=== PATIENT | male | born 1950 | race Caucasian/White ===

== ENCOUNTER → 2018-05-26 | Day surgery (SDC) | payer OTHER ==
[2018-05-25 12:23] LABS: Absolute Lymphocytes (CBC) 2.5 K/uL (0.7-4.9); Absolute Monocytes 0.6 K/uL (0.1-1.3); Absolute Neutrophil 7.1 K/uL (1.8-8.0); Basophils % 0.5 % (0-1.3); Eosinophils % 1.9 % (0-4.4); Hematocrit 43.1 % (39.6-49.0); Lymphocytes % 24.3 % (15.3-44.8); MPV 9.1 fL (7.6-11.3); Monocytes % 5.4 % (3.3-12.3); RBC Red Blood Cell Count 4.81 M/uL (4.33-5.43)
--- NOTE | 2018-05-25 12:33 | RAD REPORT ---
EXAM DESCRIPTION: RAD - Chest Pa And Lat (2 Views) - 05/25/2018 12:16 pm CLINICAL HISTORY: preop Chest pain. COMPARISON: CHEST PA AND LAT 2 VIEW dated 08/07/2015 FINDINGS: Diffuse COPD is present. The heart is mildly to moderately. No displaced fractures. IMPRESSION: COPD.
[2018-05-25 12:39] LABS: Protime INR 1.01
[2018-05-25 12:43] LABS: BUN Blood Urea Nitrogen 20 mg/dL (7-18); Bicarbonate 30 mmol/L (21-32); Glucose Level 213 mg/dL (74-106); Potassium 3.9 mmol/L (3.5-5.1); Sodium Level 140 mmol/L (136-145)
--- NOTE | 2018-05-25 15:34 | EKG ---
Test Date: 2018-05-25 Test Time: 12:04:16 School Bus Driver/Teacher Assistant: UYEN MEASUREMENT RESULTS: Intervals: Rate: 96 AZ: 180 QRSD: 106 QT: 380 QTc: 480 [place]: P: 81 AZ: 180 QRS: 25 T: 71 INTERPRETIVE STATEMENTS: Normal sinus rhythm Incomplete right bundle branch block Prolonged QT Abnormal ECG No previous ECG available for comparison Electronically Signed On 05-25-18 15:33:04 DIESEL LOCOMOTIVE CRANE OPERATOR by Frank Bhatia
[~2018-05-26] MED LIST: ATROPINE SULF 1 MG/10 ML SYR IV ONE; FENTANYL CITR 100 MCG/2 ML ONE; HEPA 1000U/500MLS 1,000 UNIT/500 ML BAG IV ONE; MIDAZOLAM HCL 2 MG/2 ML INJ ONE; NA CHLORIDE 0.9% 500 ML ONE
--- NOTE | 2018-05-26 23:11 | OP ---
Surgeon: Merritt Brito MD Procedures: Left heart catheterization, coronary left ventricular angiography. Findings: The patient has normal coronary arteries, normal left ventricular ejection fraction and wa ll motion, normal pressures. The diagnosis is he had a false-positive Cardiolite stress test. Procedure In Detail: The patient had an abnormal Cardiolite stress test. Symptoms suggestive of ang andreas. He was brought to the cardiac solar lab technician in a fasting state, sedated with Versed and fentanyl, an d prepared and draped in usual sterile fashion. Right radial artery was used. Entered the artery us ing a 21-gauge needle after local anesthesia with 1% lidocaine. The artery was cannulated with a 0.0 21 inch diameter guidewire and then a sheath was placed in the radial artery using the modified Seldi nger technique, a 6-Ethiopian Terumo radial sheath. The sheath was then flushed. Radial cocktail was g iven consisting of heparin, nicardipine, and nitroglycerin. We used a TIG catheter, guided it into t he ascending aorta using fluoroscopy and a Terumo Glidewire. We angiogram'd the left coronary, right coronary, left ventricle; all using the TIG catheter. Catheter was removed over a wire to straighte n it. The sheath was then flushed and removed, and the arteriotomy was closed with a TR band. No co mplications from the procedure. Estimated Blood Loss: 5 cc. Tile Picker: Anne-Marie Klein. ZEB/DEBRA Voice ID: [id number] Report ID: [id number]
--- NOTE | 2018-05-31 20:25 | HP ---
Date of Admission: 05/26/2018 Chief Complaint: Abnormal Cardiolite stress test. Reason For Hospitalization: Reason for the admission to the hospital is an outpatient procedure of c ardiac cath because of an abnormal stress test. History Of Present Illness: Mr. Johnson has a previous history of hypertension, never had myocardial inf arction or stroke before, started having chest pain, and we did a cardiac stress test with nuclear me dheeraj and found that he had evidence of ischemia. He was at first very reluctant to do anything abo ut it. We did that in December and that within a few times and at our last meeting in February 2018 he said he was planning on doing the cardiac cath. He did not actually schedule it until 05/26/2018. Allergies: THE PATIENT HAS NO ALLERGIES. Physical Examination: General: He is alert, oriented, pleasant, not in distress. Vital Signs: His blood pressure was 130/80. Neck: No carotid bruit. Lungs: Clear. Cardiac Exam: Normal. Extremities: Palpable normal distal pulses. Abdomen: Soft. Neurological Exam: Within normal limits. Impression: The patient needs a cardiac cath because of the possibility suggestive of a stress test that he has blocked arteries. He may well need a stent. He seemed to understand the procedure, its potential benefits, indications, and risks. He agrees to proceed. We plan to do a cardiac cath via the right radial artery and if he has a stenosis we will be ready to pu t in a stent. MORRIS Voice ID: [id number]
== END ==
LOC: CCL 07:50
PROVIDERS: ATTEND Internal Medicine
DX: I20.8 Other forms of angina pectoris (principal); R94.39 Abnormal result of other cardiovascular function study; J44.9 Chronic obstructive pulmonary disease, unspecified
CPT/HCPCS: 36415; 71046; 80048; 85025; 85610; 85730; 93005; 93458; C1893; J2250 ×2; J3010; J0583

== ENCOUNTER 2020-06-16 07:38 | Day surgery (SDC) | payer OTHER ==
--- OUTSIDE RECORDS SUMMARY | 2020-06-16 07:41 | XMS REPORT | Continuity of Care Document ---
:1950 Author Organization [facility] t Address [facility] [place] [address] Care Team Providers Name Role Phone Unavailable Unavailable Unavailable Problems Condition Condition Condition Status Onset Resolution Last Treating Co mments Source Name Details Category Date Date Treatment Clinician Date Elevated Elevated Diagnosis Active [facility] Lower Lower Diagnosis Active [facility] urinary urinary [facility] - tract tract [facility] symptoms symptoms l (LUTS) [facility]LUTS) [facility] Allergies, Adverse Reactions, Alerts This patient has no known allergies or adverse reactions. Medications Ordered Filled Start Stop Current Ordering Indication Dosage Frequency Signature Comments Components Source Medication Medication Date Date Medication? Clinician (SIG) Name Name Tamsulosin Tamsulosin 2020- No Kym [address] [facility] HCl HCl 01-20 Krista Varmakes - 00:00: 00:00 [facility] 00 :00 l [facility] Procedures This patient has no known procedures. Encounters Start End Encounter Admission Attending Care Care Encounter Source Date/Time Date/Time Type Type Clinicians Facility Department ID 2020-01-21 2020-01-21 Outpatient Brazamrita Alcalat [id number] [facility] 14:15:00 14:15:00 t Specialty/U Avani kes - Specialty rology [facility] /Urology Clinic l [facility] Results This patient has no known results.
[2020-06-16] MEDS ORDERED: Ringers Lactate 1,000 ML IV ONE (08:07)
[2020-06-16] MEDS ORDERED: EPINEPHRINE/PF 1 MG/ML AMP ONE (08:11)
[2020-06-16] MEDS ORDERED: propofoL 200 MG/20 ML VIAL IV ONE (08:35)
[2020-06-16] MEDS ORDERED: LIDOCAINE 1% MPF 5 ML VIAL ONE (08:35)
[2020-06-16] MEDS ORDERED: EPHEDRINE SULF 50 MG/ML VIAL ONE (08:35)
--- NOTE | 2020-06-16 10:28 | OP ---
Surgeon: Emmanuel Mendez MD Procedure Performed: Colonoscopy. Indication For Procedure: Screening, also positive Cologuard. Plan For Anesthesia: Monitored anesthesia care. Complexity: Average. Technique: After obtaining informed consent from the patient and explaining risks and complications, which include but are not limited to bleeding, infection, perforation, and anesthesia complication p atient was placed in the left lateral position and sedation was given. From then on the scope was ad vanced. A digital rectal exam was performed and then scope was advanced to the rectum and carefully guided up till the cecum. The cecum was identified by the ileocecal valve and appendiceal orifice. Subsequently, scope gradually withdrawn while carefully examining the mucosa. Scope withdrawal time was 15 minutes. Quality of prep was limited due to he is having some stools. Findings: In the distal sigmoid and rectum whitish mucus was seen which is most consistent with pseu domembranes. Biopsies were taken from the rectosigmoid region. Also in the sigmoid, 2 polyps were s een from 8 mm to 1.5 cm. Both were removed by hot snare polypectomy. In the descending colon, 1 cm polyp was seen, this was removed by hot snare polypectomy. In the proximal ascending colon 2 sessile polyps from 9-11 mm in size were seen. These were removed with hot snare polypectomy. Few scattere d diverticula seen in the entire colon. Complications: None. Tolerance To Anesthesia: Excellent. Postoperative Diagnoses: Polyps, diverticulosis, suspected pseudomembranous colitis. Plan: 1.Await pathology results. 2.We have taken stool and have sent it for C diff evaluation. If the patient does have diarrhea, I will speak to him. We will send over vancomycin 250 mg q.6 hours for 14 days. Repeat colonoscopy in 6-12 months due to limited prep, if the polyps bench lay out technician to be adenomatous. US/MODL Voice ID: [id number] Report ID: [id number]
[2020-06-16 12:29] VITALS: BP 123/72; TEMP 97.9; O2SAT 97
[2020-06-16 14:15] LABS: C.diff Antigen/Toxin Ag neg : Tox neg (NEG : NEG)
== END 2020-06-16 10:50 | disposition home or self-care (01) ==
LOC: OR 07:38
PROVIDERS: ATTEND Internal Medicine Gastroenterology
PROC: 0DBN8ZX Excision of Sigmoid Colon, Via Natural or Artificial Opening Endoscopic, Diagnostic (ICD-10-PCS; 2020-06-16)
PROC: 0DBM8ZX Excision of Descending Colon, Via Natural or Artificial Opening Endoscopic, Diagnostic (ICD-10-PCS; 2020-06-16)
PROC: 0DBP8ZX Excision of Rectum, Via Natural or Artificial Opening Endoscopic, Diagnostic (ICD-10-PCS; 2020-06-16)
PROC: 0DBN8ZX Excision of Sigmoid Colon, Via Natural or Artificial Opening Endoscopic, Diagnostic (ICD-10-PCS; 2020-06-16)
PROC: 0DBK8ZX Excision of Ascending Colon, Via Natural or Artificial Opening Endoscopic, Diagnostic (ICD-10-PCS; principal; 2020-06-16 08:30)
DX: K52.9 Noninfective gastroenteritis and colitis, unspecified (principal); K57.90 Diverticulosis of intestine, part unspecified, without perforation or abscess without bleeding; D37.4 Neoplasm of uncertain behavior of colon; D12.2 Benign neoplasm of ascending colon; J44.9 Chronic obstructive pulmonary disease, unspecified; E78.00 Pure hypercholesterolemia, unspecified; Z20.828 Contact with and (suspected) exposure to other viral communicable diseases
CPT/HCPCS: 45385; 45380; 88305; 87324; 87449; U0002; J2704; J7120; J0171

== ENCOUNTER 2021-05-16 17:26 | Emergency (ER) | payer OTHER ==
--- OUTSIDE RECORDS SUMMARY | 2021-05-16 17:30 | XMS REPORT | Continuity of Care Document ---
:1950 Author Organization [facility] t Address [address] [place] [address] Care Team Providers Name Role Phone Alexandra Khan Attending Clinician Unavailable Michael Atkinson Admitting Clinician Unavailable Payers Payer Name Policy Type Policy Number Effective Date Expiration Date S ource Problems Condition Condition Condition Status Onset Resolution Last Treating Co mments Source Name Details Category Date Date Treatment Clinician Date Elevated Elevated Diagnosis Active [facility] Lower Lower Diagnosis Active [facility] urinary [facility] - tract tract [facility] symptoms symptoms l (LUTS) [facility] Allergies, Adverse Reactions, Alerts Allergy Allergy Status Severity Reaction(s) Onset Inactive Treating Comm ents Source Name Type Date Date Clinician Sulfa DA Active SV 2020- [facility] (Sulfona 02-24 [place] [facility] 00:[facility]: d Antibiot 00 [facility] Sulfa DA Active SV RASH [facility] (Sulfona 02-24 [place] [facility] 00:[facility]: d Antibiot 00 [facility] ics[facility] No Known DA Active U [facility] Allergie 02-23 [facility] 00:[facility]: d 00 [facility] No Known DA Active U [facility] Allergie 02-23 [facility] 00:[facility]: d [facility] Medications Ordered Filled Start Stop Current Ordering Indication Dosage Frequency Signature Comments Components Source Medication Medication Date Date Medication? Clinician (SIG) Name Name Tamsulosin Tamsulosin No Kym [address] [facility] [address] HCl HCl 01-20 Krist[facility] Procedures This patient has no known procedures. Encounters Start End Encounter Admission Attending Care Care Encounter Source Date/Time Date/Time Type Type Clinicians Facility Department ID 2021-02-25 Inpatient Kassie Newby [facility] ENDO [id number] [facility] 09:30:00 [id number] [facility] 2021-02-25 2021-02-25 Outpatient Kassie Newby [facility] DAYS [id number] [facility] 07:12:00 07:12:00 45 [facility] 2020-01-21 2020-01-21 Outpatient Patyamrita Carit [id number] [address] 14:15:00 14:15:00 t Specialty/U Avani woodard - Specialty rology [facility] a /[facility]rology Clinic l [facility] Results Test Description Test Time Test Comments Results Result Comments Source SURG 2021-02-27 12:29:00 Test Item Value Reference Range Interpretation Comme nts SURG RUN DATE: (test 02/27/21 H [facility] [place] - LAB PAGE 1 RUN TIME: 1229 code = Specimen Inquiry RUN USER: INTERFACE SURG) PATIENT: SARAH DIAMOND #: [id number] LOC: JOSIANE Pepper #: [id number] AGE/SX: 70/ M ROOM: RE02/25/21REG DR: Kassie Khan MD : 48 BED: DIS: STATUS: DEP [facility] TLOC: SPEC #: [id number] RECD: STATUS: [facility] #: [id number] OSWALDO: 02/25/[address] [facility] [address]: Kassie Khan MD ENTERED: 02/26/21 SP TYPE: SURG OTHR DR: Vega Hancock Jr, MD ORDERED: SURG PATH LVL 4 COPIES TO: Vega Atkinson Jr, MD [address] [place] [address] [address] [place] [address] Kassie Khan MD [address] [place] [id number] HISTOLOGY: TI SSUE ID BLK PCS OG LEV PROCEDURE DISPOSITION ____ ___ ___ ___ COLON, NOS A 1 2 PROCED URES: SURG PATH LVL 4 (02/26/21) TISSUES: A. COLON, NOS - LEFT COLON PSEUDOMEMBRANE OF COLITIS BIOPSY CPT CODES CPT CODE(S): 13995 , , , , , , FINAL DIAGNOSIS Colon, left, biopsy: ACTIVE COLITIS NO EVIDENC E OF DYSPLASIA OR MALIGNANCY GROSS DESCRIPTION Left colon pseudomembrane of colitis bi opsy. Received in formalin are four alonzo tissue fragments, 0.3 cm each, all as A. /cw/jana Gross ing performed at [facility] Pathology, [address] [place] [address], [address], [place] [address]. Medic al Director: Fidel Delgadillo M.D. CONTINUED ON NEXT PAGE RUN DATE: 02/27/21 [facility] [place] - LAB PAGE 2 RUN TIME: 1229 Specimen Inquiry RUN USER: INTERFACE SPEC #: [facility]:[id number] PATIENT: SARAH DIAMOND #[id number] (Continued) MICROSCOPIC DESCRIPTION Left colon pseudomembrane of colitis biopsy. Sections show fragments of colonic mucosa with no sign ificant glandular distortion. However, there is marked expansion of the lamina propria with a lympho plasmacytic and eosinophilic infiltrate. Focal lymphoid aggregates identified. Foci of crypt itis and crypt abscesses identified. There are no surface erosions or ulcerations identified. No pseudomembranes identified. No microorganisms or viral inclusions are seen on H E stain. There is no evidence of dysplasia or malignancy. /pdb Signed SIGNATURE ON FILE Paloma Holcomb 02/27/21 1229 END OF REPORT COVID 19 INHOUSE [id number] 17:55:00 Test Item Value Reference Range Interpretation Comments COVID 19 INHOUSE AG NEGATIVE Negative Per manu facturer, (test code = negative result s should [id number]) be treated aspr esumptive and, if inconsi stent with clinical signs andsymptoms or necessary for patient man agement, should betested with an alternative mol ecular assay. Negative resultsdo not preclude SA RS-CoV-2 infection and s hould not be usedas the s ole basis for patient man agement decisions. Neg ative results should be considered in t he context of apatient's r ecent exposures, hist ory, presence of cli nicalsigns and symptoms co nsistent with COVID-19. Spec Comments: PRE OPCBC W/AUTO [id number] 17:25:00 Test Item Value Reference Range Interpretation Comments WHITE BLOOD CELL (test code = 11.8 K/mm3 3.5-11.0 H WBC) RED BLOOD CELL (test code = 4.20 M/mm3 4.70-6.10 L RBC) HEMOGLOBIN (test code = HGB) 12.4 G/DL 12.3-15.9 N HEMATOCRIT (test code = HCT) 39.0 % 35.8-46.7 N MEAN CELL VOLUME (test code = 92.9 Fl 86.3-98.9 N MCV) MEAN CELL HGB (test code = MCH) 29.5 pg 28.9-34.4 N MEAN CELL HGB CONCETRATION 31.8 G/DL 32.1-34.5 L (test code = MCHC) RED CELL DISTRIBUTION WIDTH 12.9 SD 11.5-14.5 N (test code = RDW) PLATELET COUNT (test code = 280 K/mm3 150-450 N PLT) MEAN PLATELET VOLUME (test code 10.60 fL 7.0-9.6 H = MPV) NEUTROPHIL % (test code = NT%) 75.1 % 40-76 N IMMATURE GRANULOCYTE % (test 0.8 % 0.0-5.0 N code = IG%) LYMPHOCYTE % (test code = LY%) 16.9 % 20.5-51.1 L MONOCYTE % (test code = MO%) 5.8 % 1.7-9.3 N EOSINOPHIL % (test code = EO%) 1.1 % 0.0-6.0 N BASOPHIL % (test code = BA%) 0.3 % 0.0-2.0 N NUCLEATED RBC % (test code = 0.0 /100WBC% 0.0-1.0 N NRBC%) NEUTROPHIL # (test code = NT#) 8.9 K/mm3 1.8-7.6 H IMMATURE GRANULOCYTE # (test 0.09 x10 3/uL 0.00-0.03 H code = IG#) LYMPHOCYTE # (test code = LY#) 2.0 K/mm3 0.6-3.0 N MONOCYTE # (test code = MO#) 0.7 K/mm3 0.2-1.5 N EOSINOPHIL # (test code = EO#) 0.1 K/mm3 0.0-0.4 N BASOPHIL # (test code = BA#) 0.0 K/mm3 0.0-0.2 N NUCLEATED RBC # (test code = 0.0 K/mm3 0.00-0.01 N NRBC#) MANUAL DIFF REQUIRED (test code NO DIFF/SCN CRITERIA = MDIFF) BASIC METABOLIC [id number] 17:12:00 Test Item Value Reference Range Interpretation Comments SODIUM (test code = NA) 138 mmol/L 134-147 N POTASSIUM (test code = 4.2 mmol/L 3.4-5.0 N K) CHLORIDE (test code = 102 mmol/L 100-108 N CL) CARBON DIOXIDE (test 34 mmol/L 21-32 H code = CO2) ANION GAP (test code = 2.0 GAP calc 4.0-15.0 L GAP) GLUCOSE (test code = 177 MG/DL 70-110 H GLU) BLOOD UREA NITROGEN 22 MG/DL 7-18 H (test code = BUN) GLOMERULAR FILTRATION >=60 max estimate >60 RATE (test code = GFR) estGFR CREATININE (test code = 0.6 MG/DL 0.8-1.3 L CREAT) CALCIUM (test code = CA) 9.5 MG/DL 8.5-10.1 N - XR CHEST 2 [id number] 17:04:00 [facility] 1950 Sex: M Name: SARAH [facility]OND [facility] : 1950 Age/S: 70 / M [address] Unit #: [id number] Loc: [place] [address] Phys: Barrera Jacobson MD Acct: [id number] Dis Date: Status: PRE [facility] PHONE #: [phone] Exam Date: 02/24/2021 4037 FAX #: Reason: PRE O P EXAMS: CPT: [id number] XR CHEST 2 V [id number] Fluoro Time: DAP (Gy m2): Air Kerma (mGy): EXAMINATION: - XR CHEST 2 V COMPARISON: None HISTORY: Preop Location code: C3 FINDINGS: PA and lateral views of the chest are submitted for evaluation. Lungs are hyperexpanded, with flattening of the hemidiaphragms, findings which likely reflect underlying COPD. No lung masses, consolidations or effusions are identified. The cardiac silhouette and mediastinal contours are unremarkable. No acute bony abnormalities are identified. IMPRESSION: No acute radiographic abnormality Hyperexpanded lungs, findings likely reflecting underlying COPD at 1704 Reported and signed by: Angie Lauren M.D. CC: Barrera Jacobson MD; Vega Atkinson Jr, MD; Kassie Khan MD PAGE 1 Signed Report Name: SARAH DIAMOND [place] : 1950 Age/S: 70 / M [address] Unit #: [id number] Loc: [place] [address] Phys: Barrera Jacobson MD Acct: [id number] Dis Date: Status: PRE SDC PHONE #: [phone] Exam Date: 02/24/2021 8961 FAX #: Reason: PRE OP EXAMS: CPT: [id number] XR CHEST 2 V [id number] Fluoro Time: DAP (Gy m2): Air Kerma (mGy): <Continued> Technologist: Nellie Brambila RT(R)(CT) Trnscb Date/Time: 02/24/2021 (1704) [email or web address] Orig Print D/T: S: 02/24/2021 (2667) PAGE2 Signed Report
[2021-05-16 18:13] LABS: Absolute Lymphocytes (CBC) 2.1 K/uL (0.7-4.9); Basophils % 0.6 % (0-1.3); Hematocrit 37.3 % (39.6-49.0); Lymphocytes % 21.6 % (15.3-44.8); MPV 8.9 fL (7.6-11.3); RBC Red Blood Cell Count 4.16 M/uL (4.33-5.43)
[2021-05-16 18:28] LABS: ALT/SGPT 26 U/L (12-78); AST/SGOT 17 U/L (15-37); Albumin 3.5 g/dL (3.4-5.0); Alkaline Phosphatase 78 U/L (45-117); BUN Blood Urea Nitrogen 21 mg/dL (7-18); Bicarbonate 35 mmol/L (21-32); Bilirubin Direct < 0.1 mg/dL (0-0.2); Bilirubin Total 0.3 mg/dL (0.2-1.0); Glucose Level 294 mg/dL (74-106); Lipase 36 U/L (73-393); Potassium 3.9 mmol/L (3.5-5.1); Protein, Total 7.8 g/dL (6.4-8.2); Sodium Level 138 mmol/L (136-145)
--- NOTE | 2021-05-16 20:22 | RAD REPORT ---
EXAM DESCRIPTION: CTAbdomen Pelvis W Contrast - 05/16/2021 8:09 pm CLINICAL HISTORY: Abdominal pain. CONSTIPATION COMPARISON: Abdomen Pelvis W Contrast dated 04/04/2020 TECHNIQUE: Biphasic CT imaging of the abdomen and pelvis was performed with 100 ml non-ionic IV cont rast. All CT scans are performed using dose optimization technique as appropriate and may include automated exposure control or mA/KV adjustment according to patient size. FINDINGS: The lung bases are clear. The liver, spleen, pancreas, adrenal glands and kidneys are within normal limits. No bowel obstruction, free air, free fluid or abscess. Moderate stool is retained in the rectosigmoid colon. There are numerous diverticula in the region with mild surrounding inflammation. Appendectomy . No evidence of significant lymphadenopathy. Tiny calculi are present in the dependent portion of t he urinary bladder. Moderate prostatomegaly. No suspicious bony findings. IMPRESSION: Prominent sigmoid diverticulosis with mild findings of diverticulitis. There is also not ed to be prominent stool retained in the rectosigmoid colon. Small stones are present in the dependent portion the urinary bladder. Prostatomegaly.
--- NOTE | 2021-05-16 20:57 | EDPHYS ---
Physician Documentation [facility] Name: Grant Johnson Age: 70 yrs Sex: Male : 1950 Arrival Date: 05/16/2021 Time: 17:32 Bed 4 Private MD: ED Physician Marco Ann HPI: 05/16 18:52 This 70 yrs old Male presents to ER via Ambulatory with complaints of Constipation. pm1 18:52 The patient presents with constipation. Onset: The symptoms/episode began/occurred 3 pm1 day(s) ago. Associated signs and symptoms: Pertinent negatives: chest pain, diarrhea, dysuria, fever, nausea, shortness of breath, vomiting, abdominal pain. Modifying factors: The symptoms are alleviated by nothing, has tried some OTC laxatives without any relief. the symptoms are aggravated by possibly from vancomycin. Started after taking medications for bacteria in his stool. Patient recently had colonscopy from Dr. Khan. Severity of pain: in the emergency department the pain 0/10. Denies pain. Reports some discomfort and low back pain with his constipation. The patient has not experienced similar symptoms in the past. The patient has been recently seen by a physician: Dr. Khan. Historical: - Allergies: 17:38 Sulfa (Sulfonamide Antibiotics); ss - PMHx: 17:38 COPD; Borderline diabetes; ss - Immunization history:: Client reports receiving the 1st dose of the Covid vaccine. - Social history:: Smoking status: Patient/guardian denies using tobacco, the patient reports quitting approximately 1 years ago. ROS: 18:52 Constitutional: Negative for fever, chills, and weight loss, Cardiovascular: Negative pm1 for chest pain, palpitations, and edema, Respiratory: Negative for shortness of breath, cough, wheezing, and pleuritic chest pain. 18:52 : Negative for injury, bleeding, discharge, and swelling, MS/Extremity: Negative for injury and deformity, Skin: Negative for injury, rash, and discoloration. 18:52 Abdomen/GI: Positive for constipation, Negative for abdominal pain, nausea, vomiting, and diarrhea. 18:52 Back: Positive for mild low back pain. 18:52 All other systems are negative. Exam: 18:52 Constitutional: This is a well developed, well nourished patient who is awake, alert, pm1 and in no acute distress. Head/Face: Normocephalic, atraumatic. 18:52 Abdomen/GI: Soft, non-tender, with normal bowel sounds. No distension or tympany. No guarding or rebound. No evidence of tenderness throughout. Back: No spinal tenderness. No costovertebral tenderness. Full range of motion. Skin: Warm, dry with normal turgor. Normal color with no rashes, no lesions, and no evidence of cellulitis. MS/ Extremity: Pulses equal, no cyanosis. Neurovascular intact. Full, normal range of motion. 18:52 Cardiovascular: Exam negative for acute changes, Rate: normal, Rhythm: regular, Pulses: no pulse deficits are appreciated, Heart sounds: normal, normal S1and S2. 18:52 Respiratory: Exam negative for acute changes, respiratory distress, shortness of breath, Breath sounds: are clear throughout, patient is using his home O2 at 2 L NC. Patient moved to our 2L NC. 18:52 Neuro: Exam negative for acute changes, Orientation: is normal, Mentation: is normal, Motor: moves all fours, Sensation: no obvious gross deficits. Vital Signs: 17:36 BP 150 / 89; Pulse 112; Resp 20; Temp 97.8(TE); Pulse Ox 90% on 2 lpm NC; Weight 95.25 ss kg; Height 6 ft. 3 in. (190.50 cm); 17:36 Pain 1/10; ss 18:43 BP 112 / 69; Pulse 90; Resp 15; Pulse Ox 98% on NC; jl7 19:32 BP 109 / 61; Pulse 85; Resp 18 S; Pulse Ox 100% on R/A; as6 22:22 BP 115 / 77; Pulse 85; Resp 18; Pulse Ox 100% on 2 lpm NC; lp1 17:36 Body Mass Index 26.25 (95.25 kg, 190.50 cm) ss MDM: 17:49 Patient medically screened. pm1 20:50 Physician consultation: Kassie Khan MD Discussed the case with Dr. Khan's SALES PROMOTER Ramy. pm1 Agreed that Augmentin will be a good choice to prescribe the patient. Patient was prescribed vancomycin for pseudomembranous colitis with colonoscopy performed recently. She would like the patient to call the office on Tuesday to set up an appointment. 20:54 Data reviewed: vital signs. Data interpreted: Pulse oximetry: on room air is 100 %. pm1 Interpretation: normal. 20:55 Counseling: I had a detailed discussion with the patient and/or guardian regarding: the pm1 historical points, exam findings, and any diagnostic results supporting the discharge/admit diagnosis, lab results, radiology results, the need for outpatient follow up, a cargo agent, Call Dr. Khan's office on Tuesday to schedule an appointment as directed by his SALES PROMOTER Ramy, to return to the emergency department if symptoms worsen or persist or if there are any questions or concerns that arise at home. 05/16 17:49 Order name: Basic Metabolic Panel; Complete Time: 18:37 pm1 05/16 17:49 Order name: CBC with Diff; Complete Time: 18:37 pm1 05/16 17:49 Order name: CT Abd/Pelvis - PO and IV Contrast; Complete Time: 20:36 pm1 05/16 17:49 Order name: Hepatic Function; Complete Time: 18:37 pm1 05/16 17:49 Order name: Lipase; Complete Time: 18:37 pm1 05/16 17:49 Order name: IV Saline Lock; Complete Time: 18:05 pm1 05/16 17:49 Order name: Labs collected and sent; Complete Time: 18:05 pm1 Administered Medications: 21:34 Drug: Zosyn (piperacillin-tazobactam) 3.375 grams Route: IVPB; Infused Over: 60 mins; lp1 Site: right antecubital; 22:47 Follow up: IV Status: Completed infusion; IV Intake: 100ml lp1 Disposition: 05/17 08:40 Co-signature as Attending Physician, Marco Ann MD I agree with the assessment and rn plan of care. Attestation: The patient's history, exam findings, diagnostics, and a summary of any interventions or procedures was reviewed in detail with Leonardo Carballo NP. Disposition Summary: 05/16/21 20:57 Discharge Ordered Location: Home pm1 Problem: new pm1 Symptoms: have improved pm1 Condition: Stable pm1 Diagnosis - Diverticulitis of intestine, part unspecified, without perforation or abscess pm1 without bleeding Followup: pm1 - With: Emergency Department - When: As needed - Reason: Worsening of condition Followup: pm1 - With: Private Physician - When: 2 - 3 days - Reason: Recheck today's complaints, Continuance of care, Re-evaluation by your physician Discharge Instructions: - Discharge Summary Sheet pm1 - Clear Liquid Diet, Adult pm1 - Diverticulitis pm1 Forms: - Medication Reconciliation Form pm1 - Thank You Letter pm1 - Antibiotic Education pm1 - Prescription Opioid Use pm1 Prescriptions: - Augmentin 875-125 mg Oral Tablet - take 1 tablet by ORAL route every 12 hours for 10 days; 20 tablet; Refills: 0, pm1 Product Selection Permitted Signatures: Dispatcher [employer] EDMS Marco Ann MD MD rn Smirch, Shelby, RN RN ss Surekha Ocasio RN RN lp1 Leonardo Carballo NP SALES PROMOTER pm1
--- NOTE | 2021-05-16 20:57 | ER ---
Nurse's Notes [facility] Name: Grant Johnson Age: 70 yrs Sex: Male : 1950 Arrival Date: 05/16/2021 Time: 17:32 Bed 4 Private MD: Diagnosis: Diverticulitis of intestine, part unspecified, without perforation or abscess without bleeding Presentation: 05/16 17:36 Chief complaint: Patient states: constipation. Pt reports his last BM was 3 days ago. ss C/o mild discomfort. Coronavirus screen: Client denies travel out of the [place] in the last 14 days. Ebola Screen: Patient denies exposure to infectious person. Patient denies travel to an Ebola-affected area in the 21 days before illness onset. Initial Sepsis Screen: Does the patient meet any 2 criteria? No. Patient's initial sepsis screen is negative. Does the patient have a suspected source of infection? No. Patient's initial sepsis screen is negative. Risk Assessment: Do you want to hurt yourself or someone else? Patient reports no desire to harm self or others. Onset of symptoms was May 13, 2021. 17:36 Method Of Arrival: Ambulatory ss 17:36 Acuity: KADEN 3 ss Historical: - Allergies: 17:38 Sulfa (Sulfonamide Antibiotics); ss - PMHx: 17:38 COPD; Borderline diabetes; ss - Immunization history:: Client reports receiving the 1st dose of the Covid vaccine. - Social history:: Smoking status: Patient/guardian denies using tobacco, the patient reports quitting approximately 1 years ago. Screenin:08 Abuse screen: Denies threats or abuse. Nutritional screening: No deficits noted. as6 Tuberculosis screening: No symptoms or risk factors identified. Fall Risk IV access (20 points). Ambulatory Aid- Crutches/Cane/Walker (15 pts). Gait- Weak (10 pts.). Mental Status- Oriented to own ability (0 pts). Total Del Castillo Fall Scale indicates High Risk Score (45 or more points). Side Rails Up X 2 Frequent Obs/Assessments Occuring As available patient and family educated on Fall Prevention Program and Strategies. Assessment: 18:02 General: Appears in no apparent distress. comfortable, Behavior is calm, cooperative. as6 Pain: Denies pain. Neuro: Level of Consciousness is awake, alert, obeys commands, Oriented to person, place, time, situation. Cardiovascular: Capillary refill < 3 seconds Patient's skin is warm and dry. Respiratory: Airway is patent Trachea midline Respiratory effort is even, unlabored, Respiratory pattern is regular, symmetrical, pt on home O2. GI: Abdomen is round Bowel sounds present X 4 quads. Abd is soft and non tender Reports constipation. Derm: Skin is intact. 19:32 Reassessment: Patient appears in no apparent distress at this time. Patient and/or as6 family updated on plan of care and expected duration. Pain level reassessed. Patient is alert, oriented x 3, equal unlabored respirations, skin warm/dry/pink. 21:34 Reassessment: Patient appears in no apparent distress at this time. Patient is alert, lp1 oriented x 3, equal unlabored respirations, skin warm/dry/pink. Patient states feeling better. Vital Signs: 17:36 BP 150 / 89; Pulse 112; Resp 20; Temp 97.8(TE); Pulse Ox 90% on 2 lpm NC; Weight 95.25 ss kg; Height 6 ft. 3 in. (190.50 cm); 17:36 Pain 1/10; ss 18:43 BP 112 / 69; Pulse 90; Resp 15; Pulse Ox 98% on NC; jl7 19:32 BP 109 / 61; Pulse 85; Resp 18 S; Pulse Ox 100% on R/A; as6 22:22 BP 115 / 77; Pulse 85; Resp 18; Pulse Ox 100% on 2 lpm NC; lp1 17:36 Body Mass Index 26.25 (95.25 kg, 190.50 cm) ED Course: 17:32 Patient arrived in ED. ds1 17:38 Triage completed. ss 17:38 Arm band placed on right wrist. ss 17:40 Sukumar Sanchez, DONY is Primary Nurse. as6 17:40 Leonardo Carballo NP is PHCP. pm1 17:40 Marco Ann MD is Attending Physician. pm1 18:04 Inserted saline lock: 20 gauge in right antecubital area, using aseptic technique. as6 Blood collected. 18:09 Placed in gown. Bed in low position. Call light in reach. Side rails up X2. Cardiac as6 monitor on. Pulse ox on. NIBP on. 20:09 CT Abd/Pelvis - PO and IV Contrast In Process Unspecified. EDMS 21:34 No provider procedures requiring assistance completed. lp1 22:47 IV discontinued, No redness/swelling at site. Pressure dressing applied. lp1 Administered Medications: 21:34 Drug: Zosyn (piperacillin-tazobactam) 3.375 grams Route: IVPB; Infused Over: 60 mins; lp1 Site: right antecubital; 22:47 Follow up: IV Status: Completed infusion; IV Intake: 100ml lp1 Intake: 22:47 IV: 100ml; Total: 100ml. lp1 Outcome: 20:57 Discharge ordered by MD. pm1 22:48 Discharged to home ambulatory, with significant other. lp1 22:48 Condition: good 22:48 Discharge instructions given to patient, significant other, Instructed on discharge instructions, follow up and referral plans. medication usage, Demonstrated understanding of instructions, follow-up care, medications, Prescriptions given X 1. 22:48 Patient left the ED. lp1 Signatures: Dispatcher [employer] EDSD BishopDiane garcia ds1 Katina Beal, DONY RN ss Surekha Ocasio RN RN lp1 Leonardo Carballo, AMAURY DIRECTOR SPECIAL EDUCATION pm1 Olivier Meyers RN RN jl7 Sukumar Sanchez, DONY RN as6
[2021-05-16] MEDS ORDERED: NA CHLORIDE 0.9% 100 ML ONE (21:23)
[2021-05-16] MEDS ORDERED: PIPERACIL/TAZO 3.375 GM VIAL IV ONE (21:24)
[2021-05-16 22:53] VITALS: TEMP 97.8
[2021-05-16 22:56] VITALS: O2SAT 100
[2021-05-16 22:57] VITALS: BP 115/77
== END 2021-05-16 22:48 | disposition home or self-care (01) ==
LOC: ER 17:26
DX: K57.32 Diverticulitis of large intestine without perforation or abscess without bleeding (principal); J44.9 Chronic obstructive pulmonary disease, unspecified; Z88.2 Allergy status to sulfonamides
CPT/HCPCS: 96365; 85025; 80048; 36415; 80076; 83690; 74177; 99284; Q9967; J2543